=== PATIENT | female | born 1940 | race Caucasian/White ===

== ENCOUNTER → 2016-12-27 | Outpatient (CLI) | payer MEDICARE, BC ==
--- NOTE | 2016-12-27 15:41 | RAD ---
DATE: 12/27/2016 EXAM: MAMMO DALLIN SCREENING BILATERAL Bilateral digital screening mammography to include digital breast tomosynthesis (3D mammography) HISTORY: Screening study. COMPARISON: 2015 This study was interpreted with the benefit of Computerized Aided Detection (CAD). The breast parenchyma shows scattered fibroglandular densities. Breast parenchyma level B. FINDINGS: Digital MLO and CC mammograms of both breasts were obtained. Additionally digital breast tomosynthesis (3D mammography) images of both breasts in the MLO and CC projections were performed. Comparison study is dated 11/14/2015. The breast parenchyma is composed of scattered fibroglandular densities which can obscure a lesion on mammography (breast density code B). No spiculated mass is seen. No malignant appearing calcification or area of architectural distortion is noted. Benign-appearing calcifications are seen within both breasts. Digital breast tomosynthesis images demonstrate no spiculated mass or malignant appearing calcification. Since the previous examination there has been no significant interval change. IMPRESSION: BI-RADS Category 1, negative. There is no mammographic evidence of malignancy. Routine yearly screening mammography is recommended for follow-up. BI-RADS CATEGORY: 1 NEGATIVE RECOMMENDED FOLLOW-UP: 12M 12 MONTH FOLLOW-UP PQRS compliance statement: Patient information was entered into a reminder system with a target due date 12/27/2017 for the next mammogram. Mammography is a sensitive method for finding small breast cancers, but it does not detect them all and is not a substitute for careful clinical examination. A negative mammogram does not negate a clinically suspicious finding and should not result in delay in biopsying a clinically suspicious abnormality. "Our facility is accredited by the [employer] Mammography Program."
== END | disposition home or self-care (01) ==
LOC: MAMMO 13:05
PROVIDERS: ATTEND Family Medicine
DX: Z12.31 Encounter for screening mammogram for malignant neoplasm of breast (principal)
CPT/HCPCS: 77063; G0202; 77067

== ENCOUNTER 2019-04-17 18:41 | Inpatient (IN) | payer MEDICARE, BC ==
[~2019-04-17] VITALS: Ht 165.1 cm; Wt 103.9 kg
[2019-04-17 19:00] VITALS: BP 130/70
[2019-04-17 21:04] LABS: BASO # 0.1 x10^3/uL (0.0-0.2); BASO % 1 % (0-3); EOS # 0.3 x10^3/uL (0.0-0.7); EOS % 4 % (0-3); HEMATOCRIT 36.8 % (36.0-47.0); HEMOGLOBIN 12.1 g/dL (12.0-15.5); LYMPH # 2.2 x10^3/uL (1.0-4.8); LYMPH % 22 % (24-48); MEAN CORPUSCULAR HEMOGLOBIN 27 pg (25-35); MEAN CORPUSCULAR HGB CONC 33 g/dL (31-37); MEAN CORPUSCULAR VOLUME 83 fL (79-100); MONO # 1.1 x10^3/uL (0.0-1.1); MONO % 11 % (0-9); NEUT # 6.1 x10^3uL (1.8-7.7); NEUT % 63 % (31-73); PLATELET COUNT 201 x10^3/uL (140-400); RED BLOOD COUNT 4.45 x10^6/uL (3.50-5.40); RED CELL DISTRIBUTION WIDTH 15.6 % (11.5-14.5); WHITE BLOOD COUNT 9.8 x10^3/uL (4.0-11.0)
[2019-04-17 21:23] LABS: ALBUMIN 3.1 g/dL (3.4-5.0); ALBUMIN/GLOBULIN RATIO 0.8 (1.0-1.7); CALCIUM 8.7 mg/dL (8.5-10.1); CREATININE 1.5 mg/dL (0.6-1.0); GFR 33.4; POTASSIUM 3.8 mmol/L (3.5-5.1); TOTAL BILIRUBIN 0.4 mg/dL (0.2-1.0); TOTAL PROTEIN 7.2 g/dL (6.4-8.2)
[2019-04-17 23:00] VITALS: BP_SYST 136; BP_SYST 95; BP_DIAS 58; BP_DIAS 75
[2019-04-18] MEDS ORDERED: FERR325T14 PO (00:18)
[2019-04-18] MEDS ORDERED: DULO60CA6 PO (00:18)
[2019-04-18] MEDS ORDERED: ASPI-630 PO (00:18)
[2019-04-18] MEDS ORDERED: TRAZ-120 PO (00:18)
[2019-04-18] MEDS ORDERED: ACYC400T PO (00:18)
[2019-04-18] MEDS ORDERED: POTA20TA83 PO (00:18)
[2019-04-18] MEDS ORDERED: APIX2.5T PO (00:18)
[2019-04-18] MEDS ORDERED: SULF1TAB23 PO (00:18)
[2019-04-18] MEDS ORDERED: OMEG-33 PO (00:18)
[2019-04-18] MEDS ORDERED: ATOR40TA59 PO (00:18)
[2019-04-18] MEDS ORDERED: METF850T8 PO (00:18)
[2019-04-18] MEDS ORDERED: GABA-586 PO (00:18)
[2019-04-18] MEDS ORDERED: METO50TA6 PO (00:18)
[2019-04-18] MEDS ORDERED: TORS10TA3 PO (00:19)
[2019-04-18] MEDS ORDERED: ALBU2.5V14 NEB (00:19)
[2019-04-18] MEDS ORDERED: TRAM50TA PO (00:19)
[2019-04-18] MEDS ORDERED: HYDR-2155 PO (00:19)
[2019-04-18] MEDS ORDERED: FLUT100D IH (00:19)
[2019-04-18] MEDS ORDERED: traMADol 50 MG TABLET PO PRN (00:30)
[2019-04-18] MEDS ORDERED: HYDROcodone/APAP 5/325MG 1 TAB TABLET PO PRN (00:30)
[2019-04-18] MEDS ORDERED: VANCOMYCIN PER PHARMACY MC PRN (00:30)
[2019-04-18] MEDS ORDERED: ANTI-COAG MONITOR BY PHARMACY. MC PRN (00:45)
[2019-04-18] MEDS ORDERED: VANCOMYCIN 2 GM in IV NORMAL SALINE 500ML 500 ML IV ONE (02:00)
[2019-04-18] MEDS ORDERED: ALBUTEROL SULFATE 2.5 MG/3 ML NEBU. ONE (04:37)
[2019-04-18] MEDS: ALBUTEROL SULFATE 2.5 MG/3 ML NEBU. NEB SCH ×4 (05:18→21:08)
[2019-04-18] MEDS ORDERED: NON FORMULARY ITEM (Albuterol Sulfate (Albuterol Sulfate Conc Neb Soln) 1 VIAL) NEB SCH (06:00)
[2019-04-18 06:17] VITALS: BP 128/72
[2019-04-18 06:53] LABS: CREATININE 1.4 mg/dL (0.6-1.0); GFR 36.2; POTASSIUM 3.8 mmol/L (3.5-5.1)
[2019-04-18] MEDS: BUDESONIDE 0.5 MG/2 ML NEBU NEB SCH ×3 (08:00→21:08)
[2019-04-18] MEDS: POTASSIUM CHLORIDE 20 MEQ TABLET.ER. PO SCH (08:32)
[2019-04-18] MEDS: metFORMIN 850 MG TABLET PO SCH ×2 (08:32→17:00)
[2019-04-18] MEDS: LACTOBACILLUS RHAMNOSUS GG 1 CAPSULE. PO SCH ×2 (08:32→22:18)
[2019-04-18] MEDS: APIXABAN 2.5 MG TABLET PO SCH ×2 (08:32→22:19)
[2019-04-18] MEDS: ASPIRIN 81 MG TAB.CHEW PO SCH (08:32)
[2019-04-18] MEDS: FERROUS SULFATE 325 MG TABLET. PO SCH (08:32)
[2019-04-18] MEDS: DULoxetine HCL 60 MG CAPSULE.DR PO SCH ×2 (08:33→21:00)
[2019-04-18] MEDS: METOPROLOL TART IMMED RELEASE 50 MG TABLET PO SCH ×2 (08:33→22:19)
[2019-04-18] MEDS: TORSEMIDE 20 MG TABLET. PO SCH (08:33)
[2019-04-18] MEDS: OMEGA-3 FATTY ACIDS/FISH OIL 1,000 MG CAPSULE. PO SCH (08:33)
[2019-04-18] MEDS: GABAPENTIN 300 MG CAPSULE. PO SCH ×2 (08:33→22:19)
[2019-04-18] MEDS ORDERED: NON FORMULARY ITEM (Fluticasone Propionate (Flovent 100MCG Diskus) 1 PUFF) IH SCH (09:00)
[2019-04-18] MEDS ORDERED: ACYCLOVIR 200 MG CAPSULE PO SCH (09:00)
[2019-04-18] MEDS ORDERED: ACYCLOVIR 200 MG CAPSULE PO PRN (09:15)
[2019-04-18 11:03] VITALS: BP 120/68
--- NOTE | 2019-04-18 13:17 | PN ---
DATE: SUBJECTIVE: The patient came in with cellulitis to her left lower leg. Apparently, there was an elevated lactic acid from the office. The patient says she is doing better with her IV vancomycin. She had been on oral antibiotics as an outpatient without any success. OBJECTIVE: VITAL SIGNS: Her blood pressure was 120/60, respiratory rate 18, pulse 72, afebrile. GENERAL: The patient was alert and oriented x 3. LUNGS: Diminished, but clear. CARDIOVASCULAR: Stable. ABDOMEN: Soft, nontender. EXTREMITIES: Left leg is still swollen and tender and erythematous, but markedly improved from the day before, so we are making some progress. We will have a PICC line placed on her and make further evaluation, probably as an outpatient where she can receive IV antibiotic therapy as an outpatient. IMPRESSION: Cellulitis to the left lower leg, systemic inflammatory response syndrome. PLAN: Continue with IV vancomycin as indicated. JENNIFER NARVAEZ MD DR: SUKHI/akila JOB#: [id number] / [id number]
[2019-04-18 15:30] VITALS: BP 150/78
[2019-04-18] MEDS ORDERED: LOPERAMIDE 2 MG CAPSULE PO PRN (18:30)
[2019-04-18 19:15] VITALS: BP 124/69
[2019-04-18 22:20] VITALS: BP 127/71
[2019-04-18] MEDS: traZODone 100 MG TABLET. PO SCH (22:22)
[2019-04-18] MEDS: ATORVASTATIN CALCIUM 20 MG TABLET PO SCH (22:22)
[2019-04-19] MEDS: VANCOMYCIN 1.5 GM in IV NORMAL SALINE 500ML 500 ML IV SCH (03:00)
[2019-04-19 05:37] VITALS: BP 116/72
[2019-04-19] MEDS: ALBUTEROL SULFATE 2.5 MG/3 ML NEBU. NEB SCH ×4 (05:44→21:00)
[2019-04-19 06:37] LABS: BASO % 1 % (0-3); EOS # 0.3 x10^3/uL (0.0-0.7); EOS % 3 % (0-3); LYMPH # 2.2 x10^3/uL (1.0-4.8); LYMPH % 27 % (24-48); MEAN CORPUSCULAR HEMOGLOBIN 27 pg (25-35); MEAN CORPUSCULAR HGB CONC 32 g/dL (31-37); MEAN CORPUSCULAR VOLUME 83 fL (79-100); MONO % 12 % (0-9); NEUT # 4.6 x10^3uL (1.8-7.7); NEUT % 57 % (31-73); PLATELET COUNT 182 x10^3/uL (140-400); RED BLOOD COUNT 4.08 x10^6/uL (3.50-5.40); RED CELL DISTRIBUTION WIDTH 15.4 % (11.5-14.5)
[2019-04-19] MEDS: OMEGA-3 FATTY ACIDS/FISH OIL 1,000 MG CAPSULE. PO SCH (08:33)
[2019-04-19] MEDS: METOPROLOL TART IMMED RELEASE 50 MG TABLET PO SCH ×2 (08:33→19:43)
[2019-04-19] MEDS: GABAPENTIN 300 MG CAPSULE. PO SCH ×2 (08:34→19:44)
[2019-04-19] MEDS: APIXABAN 2.5 MG TABLET PO SCH ×2 (08:34→19:44)
[2019-04-19] MEDS: FERROUS SULFATE 325 MG TABLET. PO SCH (08:34)
[2019-04-19] MEDS: ASPIRIN 81 MG TAB.CHEW PO SCH (08:34)
[2019-04-19] MEDS: LACTOBACILLUS RHAMNOSUS GG 1 CAPSULE. PO SCH ×2 (08:34→19:43)
[2019-04-19] MEDS: metFORMIN 850 MG TABLET PO SCH ×2 (08:34→17:00)
[2019-04-19] MEDS: TORSEMIDE 20 MG TABLET. PO SCH (08:34)
[2019-04-19] MEDS: POTASSIUM CHLORIDE 20 MEQ TABLET.ER. PO SCH (08:34)
[2019-04-19] MEDS: DULoxetine HCL 60 MG CAPSULE.DR PO SCH ×2 (08:34→19:44)
[2019-04-19 11:14] VITALS: BP 131/75
--- NOTE | 2019-04-19 11:28 | PN ---
DATE: SUBJECTIVE: An 78-year-old female in with cellulitis of the left lower leg, still fairly well inflamed there. The patient's blood sugar under better control. The patient is receiving her vancomycin daily. OBJECTIVE: VITAL SIGNS: Blood pressure 116/72, respiratory rate 20, pulse 72, afebrile. GENERAL: The patient is alert and oriented. LUNGS: Diminished, but clear. CARDIOVASCULAR: Stable. ABDOMEN: Soft, nontender. EXTREMITIES: Left lower leg still markedly inflamed and irritated. Continue to receive the IV vancomycin. We will get a PICC line in tomorrow. None available list today and then possibly discharge home with home health. IMPRESSION: Cellulitis to the left lower leg, unresponsive to outpatient therapy. PLAN: Continue to monitor the patient accordingly, make further evaluation on her as indicated. JENNIFER NARVAEZ MD DR: SUKHI/akila JOB#: [id number] / [id number]
[2019-04-19 19:24] VITALS: BP 120/76
[2019-04-19] MEDS: ATORVASTATIN CALCIUM 20 MG TABLET PO SCH (19:43)
[2019-04-19] MEDS: traZODone 100 MG TABLET. PO SCH (19:43)
[2019-04-19] MEDS: BUDESONIDE 0.5 MG/2 ML NEBU NEB SCH (21:00)
[2019-04-20 02:49] LABS: VANC TR 15.1 mcg/mL (10.0-20.0)
[2019-04-20] MEDS: VANCOMYCIN 1.5 GM in IV NORMAL SALINE 500ML 500 ML IV SCH (03:00)
[2019-04-20] MEDS: ALBUTEROL SULFATE 2.5 MG/3 ML NEBU. NEB SCH ×2 (05:27→09:17)
[2019-04-20 06:24] VITALS: BP 120/59
[2019-04-20] MEDS: OMEGA-3 FATTY ACIDS/FISH OIL 1,000 MG CAPSULE. PO SCH (08:09)
[2019-04-20] MEDS: POTASSIUM CHLORIDE 20 MEQ TABLET.ER. PO SCH (08:09)
[2019-04-20] MEDS: GABAPENTIN 300 MG CAPSULE. PO SCH (08:09)
[2019-04-20] MEDS: APIXABAN 2.5 MG TABLET PO SCH (08:09)
[2019-04-20] MEDS: LACTOBACILLUS RHAMNOSUS GG 1 CAPSULE. PO SCH (08:09)
[2019-04-20] MEDS: metFORMIN 850 MG TABLET PO SCH (08:10)
[2019-04-20] MEDS: ASPIRIN 81 MG TAB.CHEW PO SCH (08:10)
[2019-04-20] MEDS: FERROUS SULFATE 325 MG TABLET. PO SCH (08:10)
[2019-04-20] MEDS: DULoxetine HCL 60 MG CAPSULE.DR PO SCH (08:10)
[2019-04-20] MEDS: METOPROLOL TART IMMED RELEASE 50 MG TABLET PO SCH (08:10)
[2019-04-20] MEDS: BUDESONIDE 0.5 MG/2 ML NEBU NEB SCH (09:17)
[2019-04-20 09:49] VITALS: BP 124/68
[2019-04-20] MEDS ORDERED: VANC1.5P10 IV (12:34)
--- NOTE | 2019-04-22 18:06 | DS ---
DATE OF DISCHARGE: 04/20/2019 HOSPITAL COURSE: An 78-year-old female who came in with cellulitis to her left lower leg as the patient had failed outpatient therapy. The patient was mobile in the facility. The patient did not have any particular elevated white count, but the left lower leg was markedly swollen and erythematous. She had had outpatient therapy on it and lower extremity scans were performed at another institution, which were negative for clots. The patient made good progress during the rest of her hospitalization. She was started with a PICC line and vancomycin, which seemed to help her while she was in the hospital itself and there were no complications. The patient's blood culture was negative. She was mobile. Her blood pressure 124/60, respiratory rate 20, pulse 83, afebrile, and a weight of approximately 103 kilo. IMPRESSION: Cellulitis, left lower leg, morbid obesity, moderate protein malnutrition, hyperglycemia, chronic kidney disease stage 3, anemia of chronic disease. PLAN: Continue on IV vancomycin as an outpatient and make further evaluation on her as indicated at that time when she follows up. JENNIFER NARVAEZ MD DR: SUKHI/akila JOB#: [id number] / [id number]
== END 2019-04-20 12:55 | disposition home or self-care (01) | DRG 603 ==
LOC: 1 SOUTH 18:41
PROVIDERS: ADMIT Family Medicine; ATTEND Family Medicine
PROC: 02HV33Z Insertion of Infusion Device into Superior Vena Cava, Percutaneous Approach (ICD-10-PCS; principal; 2019-04-20)
PROC: B548ZZA Ultrasonography of Superior Vena Cava, Guidance (ICD-10-PCS; 2019-04-20)
DX: L03.116 Cellulitis of left lower limb (principal); R65.10 Systemic inflammatory response syndrome (SIRS) of non-infectious origin without acute organ dysfunction; E44.0 Moderate protein-calorie malnutrition; D63.8 Anemia in other chronic diseases classified elsewhere; E66.01 Morbid (severe) obesity due to excess calories; N18.3 Chronic kidney disease, stage 3 (moderate); Z68.38 Body mass index [BMI] 38.0-38.9, adult; R73.9 Hyperglycemia, unspecified
CPT/HCPCS: 36415; 36569; 80048; 80053; 80202; 82947; 83605; 85025; 87040; 94640; J3370; J7040; J7613; J7626; 97110

== ENCOUNTER → 2020-01-28 | Outpatient (CLI) | payer MEDICARE, BC ==
[2019-04-28 08:42] VITALS: BP 120/76
[~2020-01-28] MED LIST: ACYC400T PO; ALBU2.5V14 NEB; APIX2.5T PO; ASPI-630 PO; ATOR40TA59 PO; DULO60CA6 PO; FERR325T14 PO; FLUT100D IH; GABA-586 PO; HYDR-2155 PO; METF850T8 PO; METO50TA6 PO; OMEG-33 PO; POTA-163 PO; SULF1TAB23 PO; TORS10TA3 PO; TRAM50TA PO; TRAZ-120 PO; VANC1.5P10 IV
--- NOTE | 2020-01-28 12:04 | RAD ---
Examination: CT LOWER EXTREMITY WO LEFT History: LEFT FOOT/ANKLE PAIN / Comparison/Correlation: None Findings: Axial images of the left lower extremity were obtained without contrast. Imaging was performed from the distal tibial shaft level to include the entire foot. Osteopenia is notable. Arterial vascular calcifications present. There are 2 anchor sutures involving the posterior aspect of the calcaneus superiorly. Talonavicular joint space narrowing evident. Degenerative narrowing of other joint spaces to a lesser extent also seen. Ankle joint mortise is unremarkable. Slight cortical of the anterior aspect of the lateral malleolus is seen on axial image 59 of series 2 but there is no convincing soft tissue swelling identified however. Correlate with previous history of trauma. Thickened appearance of the Achilles tendon is noted. Minimal fluid deep to the Achilles tendon at its mid to distal noted. Peroneal tubercle is visualized. Impression: Osteopenia. No definite findings of fracture or bone destruction. Thickening of the Achilles tendon which may indicate tendinosis is present. Minimal edema anterior to the mid to distal Achilles tendon which may represent peritendinitis is evident. PQRS Compliance Statement: One or more of the following individualized dose reduction techniques were utilized for this examination: 1. Automated exposure control 2. Adjustment of the mA and/or kV according to patient size 3. Use of iterative reconstruction technique Electronically signed by: Zach Lazaro MD (01/28/2020 12:02 PM) [id number]
== END | disposition home or self-care (01) ==
LOC: CT 11:19
PROVIDERS: ATTEND Family Medicine
DX: M79.672 Pain in left foot (principal)
CPT/HCPCS: 73700